=== PATIENT | female | born 1965 | race Caucasian/White ===

== ENCOUNTER 2016-11-13 22:20 | Emergency (ER) | payer BC ==
[2016-11-13] MEDS ORDERED: Nitroglycerin 2% Oint 1 GM UD Packet ONE (22:35)
[2016-11-13] MEDS ORDERED: Aspirin 81 MG Tab.Chew ONE (22:35)
--- NOTE | 2016-11-13 22:37 | EDM.PDOC ---
ED HPI GENERAL MEDICAL PROBLEM - General Chief Complaint: Chest Pain Stated Complaint: CHEST PAIN Time Seen by Provider: 11/13/16 22:29 Source of Information: Reports: Patient History Limitations: Reports: No Limitations - History of Present Illness INITIAL COMMENTS - FREE TEXT/NARRATIVE: 50 YO WF presents to ER complaining of chest pain on and off x 2 weeks. Pt reports today her pain became worse prompting her to come to ER for evaluation. Pt with associated shortness of breath, but denies nausea/vomiting, diaphoresis or dizziness. Pt reports she had PTCA with stent x 1 (01/2016). Duration: Week(s): (2) Location: Reports: Chest Quality: Reports: Pressure Severity: Mild Improves with: Reports: None Worsens with: Reports: None Associated Symptoms: Reports: Chest Pain, Shortness of Breath. 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 - Related Data Allergies Allergy/AdvReac Type Severity Reaction Status Date / Time Sulfa (Sulfonamide Allergy Rash Verified 11/13/16 22:31 Antibiotics) Home Meds: Home Meds Aspirin [[place] Aspirin] 81 mg PO DAILY 02/13/16 [History] Clopidogrel [Plavix] 75 mg PO DAILY 02/13/16 [History] Isosorbide Mononitrate [Imdur] 30 mg PO DAILY 02/13/16 [History] Nitroglycerin [IJP: Nitroglycerin] 0.4 mg SL ASDIRECTED PRN 02/13/16 [History] Ubidecarenone [Co Q-10] 30 mg PO DAILY 02/13/16 [History] amLODIPine [Norvasc] 5 mg PO DAILY 02/13/16 [History] atorvaSTATin Calcium [Atorvastatin Calcium] 80 mg PO DAILY 02/13/16 [History] Past Medical History HEENT History: Reports: Impaired Vision Other HEENT History: double vision for 3 days one time Cardiovascular History: Reports: High Cholesterol Respiratory History: Reports: Other (See Below) Other Respiratory History: coksaki B virus few years ago Gastrointestinal History: Reports: Chronic Constipation, Hemorrhoids 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 Immunologic History: Reports: None Dermatologic History: Reports: Other (See Below) Other Dermatologic History: hydradenitis superativa - Infectious Disease History Infectious Disease History: Reports: Mumps - Past Surgical History Cardiovascular Surgical History: Reports: Coronary Artery Bypass, Coronary Artery Stent Musculoskeletal Surgical History: Reports: Other (See Below) Social & Family History - Family History Cardiac: Reports: [place], Pacemaker Other Cardiac Family History: cardiac arrest, family history of [place] in the 50's Neurological: Reports: CVA - Tobacco Use Smoking Status *Q: Current Every Day Smoker Years of Tobacco use: 20 Packs/Tins Daily: 1 Used Tobacco, but Quit: No Second Hand Smoke Exposure: No - Caffeine Use Caffeine Use: Reports: Coffee Caffeine Use Comment: pot a day of coffee. - Alcohol Use Days Per Week of Alcohol Use: 0 - Recreational Drug Use Recreational Drug Use: No ED ROS GENERAL - Review of Systems Review Of Systems: See Below Constitutional: Reports: No Symptoms HEENT: Reports: No Symptoms Respiratory: Reports: Shortness of Breath Cardiovascular: Reports: Chest Pain Endocrine: Reports: No Symptoms GI/Abdominal: Reports: No Symptoms : Reports: No Symptoms Musculoskeletal: Reports: No Symptoms Skin: Reports: No Symptoms Neurological: Reports: No Symptoms Psychiatric: Reports: No Symptoms Hematologic/Lymphatic: Reports: No Symptoms Immunologic: Reports: No Symptoms ED EXAM, GENERAL - Physical Exam Exam: See Below Exam Limited By: No Limitations General Appearance: Alert, WD/WN, No Apparent Distress Nose: Normal Inspection, Normal Mucosa, No Blood Throat/Mouth: Normal Inspection, Normal Lips, Normal Teeth, Normal Gums, Normal Oropharynx, Normal Voice, No Airway Compromise Head: Atraumatic, Normocephalic Neck: Normal Inspection Respiratory/Chest: No Respiratory Distress, Lungs Clear, Normal Breath Sounds, No Accessory Muscle Use, Chest Non-Tender Cardiovascular: Normal Peripheral Pulses, Regular Rate, Rhythm, No Edema, No Gallop, No JVD, No Murmur, No Rub GI/Abdominal: Normal Bowel Sounds, Soft, Non-Tender, No Organomegaly, No Distention, No Abnormal Bruit, No Mass Back Exam: Normal Inspection, Full Range of Motion, NT Extremities: Normal Inspection, Normal Range of Motion, Non-Tender, Normal Capillary Refill, No Pedal Edema Neurological: Alert, Oriented, CN II-XII Intact, Normal Cognition, Normal Gait, Normal Reflexes, No Motor/Sensory Deficits Psychiatric: Normal Affect, Normal Mood Skin Exam: Warm, Dry, Intact, Normal Color, No Rash Lymphatic: No Adenopathy EKG INTERPRETATION EKG Date: 11/13/16 Time: 22:25 Rhythm: NSR Rate (Beats/Min): 94 [place]: Normal P-Wave: Present QRS: Normal ST-T: Normal QT: Normal Comparison: NA - No Prior EKG Course - Orders/Labs/Meds Orders: Active Orders 24 hr Category Date Time Status EKG Documentation Completion [RC] ASDIRECTED Care 11/13/16 22:28 Active Chest 1V Frontal [CR] Stat Exams 11/13/16 22:27 Taken EKG 12 Lead [EK] Routine Ther 11/13/16 22:27 Ordered Labs: Laboratory Tests 11/13/16 11/13/16 11/13/16 Range/Units 22:45 22:45 22:45 WBC 11.9 H (5.0-10.0) 10^3/uL RBC 4.98 (3.80-5.50) 10^6/uL Hgb 14.5 (12.0-16.0) g/dL Hct 43.9 (37.0-47.0) % MCV 88.3 (82.0-92.0) fL MCH 29.1 (27.0-31.0) pg MCHC 33.0 (32.0-36.0) g/dL RDW 13.3 (11.5-14.5) % Plt Count 282 (150-300) 10^3/uL MPV 8.3 (7.4-10.4) fL Neut % (Auto) 60.9 (50.0-70.0) % Lymph % (Auto) 29.2 (20.0-40.0) % [place] % (Auto) 3.0 (2.0-8.0) % Eos % (Auto) 6.9 H (1.0-3.0) % Baso % (Auto) 0.0 (0.0-1.0) % Neut # (Auto) 7.2 H (2.5-7.0) 10^3/uL Lymph # (Auto) 3.5 (1.0-4.0) 10^3/uL [place] # (Auto) 0.4 (0.1-0.8) 10^3/uL Eos # (Auto) 0.8 H (0.1-0.3) 10^3/uL Baso # (Auto) 0.0 (0.0-0.1) 10^3/uL PT 9.9 (8.9-11.4) SEC INR 1.0 (0.9-1.1) APTT 27.4 (20.8-31.2) SEC Sodium 139 (136-145) mmol/L Potassium 3.8 (3.3-5.3) mmol/L Chloride 102 (98-115) mmol/L Carbon Dioxide 29.0 (21.0-32.0) mmol/L BUN 17 (6-25) mg/dL Creatinine 0.76 (0.51-1.17) mg/dL Est Cr Clr Drug Dosing TNP Estimated GFR (MDRD) > 60 mL/min Glucose 119 H (70-110) mg/dL Calcium 9.2 (8.7-10.3) mg/dL Creatine Kinase 76 (26-276) U/L CK-MB (CK-2) 0.60 (0.00-4.30) ng/mL Troponin I 0.15 H* (0.00-0.070) ng/mL Meds: Medications Discontinued Medications Generic Name Dose Route Start Last Admin Trade Name Jasenq PRN Reason Stop Dose Admin Aspirin Confirm 11/13/16 22:35 11/13/16 22:40 Aspirin Administered 11/13/16 22:36 243 mg Dose Administration 243 mg .ROUTE .STK-MED ONE Nitroglycerin Confirm 11/13/16 22:35 11/13/16 22:40 Nitro-Bid 2% Administered 11/13/16 22:36 1 gm Dose Administration 1 gm .ROUTE .STK-MED ONE - Radiology Interpretation Free Text/Narrative:: CXR- NAD Departure - Departure Time of Disposition: 23:32 Disposition: DC/Tfer to Acute Hospital 02 Reason for Transfer *Q: Other Condition: Serious Clinical Impression: Acute coronary syndrome Forms: Interfacility Transfer EMTALA - My Orders Last 24 Hours: My Active Orders 11/13/16 22:27 Chest 1V Frontal [CR] Stat EKG 12 Lead [EK] Routine 11/13/16 22:28 EKG Documentation Completion [RC] ASDIRECTED - Assessment/Plan Last 24 Hours: My Active Orders 11/13/16 22:27 Chest 1V Frontal [CR] Stat EKG 12 Lead [EK] Routine 11/13/16 22:28 EKG Documentation Completion [RC] ASDIRECTED Assessment:: 1. NonSTEMI- trop I 0.15 2. chest pain Plan: 1. transfer to [facility] for cardiology evaluation- discussed case with ER doctor- Dr Boudreaux
[2016-11-13 23:24] LABS: CHLORIDE,CL 102 mmol/L (98-115); SODIUM,NA 139 mmol/L (136-145)
[2016-11-14 02:19] VITALS: BP 138/72
[2016-11-14] MEDS ORDERED: Aspirin 81 MG Tab.Chew CHEW ONE (22:40)
[2016-11-14] MEDS ORDERED: Nitroglycerin 2% Oint 1 GM UD Packet TOP ONE (22:45)
== END 2016-11-14 00:05 ==
LOC: KA.ED 22:20
DX: I21.4 Non-ST elevation (NSTEMI) myocardial infarction (principal); I24.9 Acute ischemic heart disease, unspecified; E78.00 Pure hypercholesterolemia, unspecified; F17.210 Nicotine dependence, cigarettes, uncomplicated; Z95.1 Presence of aortocoronary bypass graft; Z95.5 Presence of coronary angioplasty implant and graft; Z88.2 Allergy status to sulfonamides; Z79.82 Long term (current) use of aspirin; Z79.02 Long term (current) use of antithrombotics/antiplatelets; Z79.899 Other long term (current) drug therapy
CPT/HCPCS: 71010; 80048; 82550; 82553; 84484; 85025; 85610; 85730; 93005; 99285; A9270

== ENCOUNTER 2016-11-18 19:00 | Emergency (ER) | payer BC ==
[2016-11-18 19:42] VITALS: BP 133/78
--- NOTE | 2016-11-18 19:47 | EDM.PDOC ---
ED HPI GENERAL MEDICAL PROBLEM - General Chief Complaint: General Stated Complaint: RIGHT ARM PAIN Time Seen by Provider: 11/18/16 19:32 Source of Information: Reports: Patient History Limitations: Reports: No Limitations - History of Present Illness INITIAL COMMENTS - FREE TEXT/NARRATIVE: Patient presents with right arm pain along the radial wrist to her shoulder. This is the path that the park aide used to place 3 cardiac stents 3 days ago. She has been complying with the post-procedure instructions about heavy lifting. She has been using the arm to operate a computer mouse quite a bit. She says she did this after the same procedure in the same arm 10 months ago but that time had no arm pain like today. She denies any chest pain or heaviness, dyspnea. - Related Data Allergies Allergy/AdvReac Type Severity Reaction Status Date / Time Sulfa (Sulfonamide Allergy Rash Verified 11/13/16 22:31 Antibiotics) Home Meds: Home Meds Aspirin [[place] Aspirin] 81 mg PO DAILY 02/13/16 [History] Clopidogrel [Plavix] 75 mg PO DAILY 02/13/16 [History] Isosorbide Mononitrate [Imdur] 30 mg PO DAILY 02/13/16 [History] Nitroglycerin [IJP: Nitroglycerin] 0.4 mg SL ASDIRECTED PRN 02/13/16 [History] Ubidecarenone [Co Q-10] 30 mg PO DAILY 02/13/16 [History] amLODIPine [Norvasc] 5 mg PO DAILY 02/13/16 [History] atorvaSTATin Calcium [Atorvastatin Calcium] 80 mg PO DAILY 02/13/16 [History] Past Medical History HEENT History: Reports: Impaired Vision Other HEENT History: double vision for 3 days one time Cardiovascular History: Reports: High Cholesterol Respiratory History: Reports: Other (See Below) Other Respiratory History: coksaki B virus few years ago Gastrointestinal History: Reports: Chronic Constipation, Hemorrhoids Genitourinary History: Reports: None 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 Immunologic History: Reports: None Dermatologic History: Reports: Other (See Below) Other Dermatologic History: hydradenitis superativa - Infectious Disease History Infectious Disease History: Reports: Mumps - Past Surgical History Cardiovascular Surgical History: Reports: Coronary Artery Bypass, Coronary Artery Stent Musculoskeletal Surgical History: Reports: Other (See Below) Social & Family History - Family History Cardiac: Reports: [place], Pacemaker Other Cardiac Family History: cardiac arrest, family history of [place] in the 50's Neurological: Reports: CVA - Tobacco Use Smoking Status *Q: Current Every Day Smoker Years of Tobacco use: 20 Packs/Tins Daily: 1 Used Tobacco, but Quit: No Second Hand Smoke Exposure: No - Caffeine Use Caffeine Use: Reports: Coffee Caffeine Use Comment: pot a day of coffee. - Alcohol Use Days Per Week of Alcohol Use: 0 - Recreational Drug Use Recreational Drug Use: No ED ROS GENERAL - Review of Systems Review Of Systems: ROS reveals no pertinent complaints other than HPI. ED EXAM, GENERAL - Physical Exam Exam: See Below Exam Limited By: No Limitations General Appearance: Alert, WD/WN, No Apparent Distress Eye Exam: Bilateral Eye: EOMI, Normal Inspection, PERRL Ears: Normal External Exam, Hearing Grossly Normal Nose: Normal Inspection Throat/Mouth: Normal Inspection, Normal Lips, Normal Voice, No Airway Compromise Head: Atraumatic, Normocephalic Neck: Full Range of Motion Respiratory/Chest: No Respiratory Distress, Lungs Clear, Normal Breath Sounds Cardiovascular: Regular Rate, Rhythm, No Murmur Peripheral Pulses: 2+: Radial (L), Radial (R) GI/Abdominal: No Distention Extremities: Normal Inspection, Normal Range of Motion, Non-Tender, Other ( Right arm has no evidence of swelling or redness and is mostly nontender to palpation; some tenderness to palpation of tricep but it is supple. No bleeding or hematoma. There is a small scab and local ecchymosis at the distal catheter site of volar radial wrist.). No: Increased Warmth, Redness Neurological: Alert, Oriented, Normal Cognition, No Motor/Sensory Deficits Psychiatric: Normal Affect, Normal Mood Skin Exam: Warm, Dry, Intact, Normal Color, No Rash Course - Vital Signs Last Recorded V/S: Last Vital Signs Temp 98.0 F 11/18/16 19:15 Pulse 93 11/18/16 19:15 Resp 18 11/18/16 19:15 BP 133/78 11/18/16 19:15 Pulse Ox 97 08/17/17 19:15 - Re-Assessments/Exams Free Text/Narrative Re-Assessment/Exam: 11/18/16 19:[address] Jensen (her park aide) and he feels that without arm swelling or tenderness and no chest symptoms, she is okay to discharge on Tylenol. Discussed this with patient and advised recheck with ultrasound if worsening pain or swelling develops. Pt discharged in stable condition. Departure - Departure Time of Disposition: 19:55 Disposition: Home, Self-Care 01 Condition: Good Clinical Impression: Right arm pain, Status post cardiac catheterization - Discharge Information Forms: ED Department Discharge Additional Instructions: 1. Use Tylenol as needed for the arm pain. 2. Continue the warm and cold packs. 3. If worsening or swelling develops you should go to be evaluated by ultrasound. 4. Follow up with cardiology if this persists. 5. Return to ER as needed.
== END 2016-11-18 20:00 | disposition home or self-care (01) ==
LOC: KA.ED 19:00
DX: L76.22 Postprocedural hemorrhage of skin and subcutaneous tissue following other procedure (principal); H54.7 Unspecified visual loss; E78.00 Pure hypercholesterolemia, unspecified; F17.210 Nicotine dependence, cigarettes, uncomplicated; Z98.890 Other specified postprocedural states; Z88.2 Allergy status to sulfonamides; Z79.82 Long term (current) use of aspirin; Z79.899 Other long term (current) drug therapy; Y84.0 Cardiac catheterization as the cause of abnormal reaction of the patient, or of later complication, without mention of misadventure at the time of the procedure
CPT/HCPCS: 99283

== ENCOUNTER 2018-06-11 20:47 | Emergency (ER) | payer BC ==
[2018-06-11] MEDS ORDERED: Sodium Chloride 0.9% 10 ML Syringe FLUSH PRN (21:16)
[2018-06-11] MEDS ORDERED: Famotidine 20 MG/2 ML SDV IVPUSH ONE (21:17)
--- NOTE | 2018-06-11 21:35 | EDM.PDOC ---
ED HPI GENERAL MEDICAL PROBLEM - General Chief Complaint: Cardiovascular Problem Stated Complaint: CHEST PRESSURE Time Seen by Provider: 06/11/18 21:03 Source of Information: Reports: Patient History Limitations: Reports: No Limitations - History of Present Illness INITIAL COMMENTS - FREE TEXT/NARRATIVE: Patient is a 52-year-old female who presents to the emergency department this evening with a complaint of epigastric pain. Patient states last evening, just prior to bedtime, she developed some epigastric discomfort. Patient states that she was able to sleep. However, when she woke this morning, the pain returned. Epigastric pain seemed to progress to midsternal and has been constant all day. Described as pressure or bloating, epigastric and midsternal region. Patient became concerned because she does have a cardiac history and stent placement 2 years ago. Patient also states that she has not been compliant with taking her medications. Patient denies shortness of breath, fever, nausea, vomiting, diarrhea, headache, cough, congestion, history of GERD , or out of country travel. Onset: Gradual Onset Date: 06/10/18 Onset Time: 23:00 Duration: Day(s): Location: Reports: Chest, Abdomen Quality: Reports: Pressure Severity: Mild Improves with: Reports: None Worsens with: Reports: None Context: Denies: Trauma Associated Symptoms: Reports: Chest Pain. Denies: Cough, cough w sputum, Fever/ Chills, Headaches, Nausea/Vomiting, Shortness of Breath - Related Data Allergies Allergy/AdvReac Type Severity Reaction Status Date / Time Sulfa (Sulfonamide Allergy Rash Verified 06/11/18 22:43 Antibiotics) Past Medical History HEENT History: Reports: Impaired Vision Other HEENT History: double vision for 3 days one time Cardiovascular History: Reports: High Cholesterol Respiratory History: Reports: Other (See Below) Other Respiratory History: coksaki B virus few years ago Gastrointestinal History: Reports: Chronic Constipation, Hemorrhoids Genitourinary History: Reports: None 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 Immunologic History: Reports: None Dermatologic History: Reports: Other (See Below) Other Dermatologic History: hydradenitis superativa - Infectious Disease History Infectious Disease History: Reports: Mumps - Past Surgical History Cardiovascular Surgical History: Reports: Coronary Artery Bypass, Coronary Artery Stent Musculoskeletal Surgical History: Reports: Other (See Below) Social & Family History - Family History Cardiac: Reports: [place], Pacemaker Other Cardiac Family History: cardiac arrest, family history of [place] in the 50's Neurological: Reports: CVA - Caffeine Use Caffeine Use: Reports: Coffee Caffeine Use Comment: pot a day of coffee. ED ROS GENERAL - Review of Systems Review Of Systems: ROS reveals no pertinent complaints other than HPI. Constitutional: Reports: No Symptoms HEENT: Reports: No Symptoms Respiratory: Reports: No Symptoms Cardiovascular: Reports: Chest Pain Endocrine: Reports: No Symptoms GI/Abdominal: Reports: Abdominal Pain : Reports: No Symptoms Musculoskeletal: Reports: No Symptoms Skin: Reports: No Symptoms Neurological: Reports: No Symptoms Psychiatric: Reports: No Symptoms Hematologic/Lymphatic: Reports: No Symptoms Immunologic: Reports: No Symptoms ED EXAM, GENERAL - Physical Exam Exam: See Below Exam Limited By: No Limitations General Appearance: Alert, WD/WN, No Apparent Distress Nose: Normal Inspection, No Blood Throat/Mouth: Normal Inspection, Normal Oropharynx, No Airway Compromise Head: Atraumatic, Normocephalic Neck: Normal Inspection, Supple Respiratory/Chest: No Respiratory Distress, Lungs Clear, Normal Breath Sounds, No Accessory Muscle Use Cardiovascular: Normal Peripheral Pulses, Regular Rate, Rhythm, No Gallop, No Murmur, No Rub Peripheral Pulses: 2+: Brachial (L), Brachial (R), Radial (L), Radial (R) GI/Abdominal: Normal Bowel Sounds, Soft, No Organomegaly, No Distention, No Abnormal Bruit, No Mass, Tender (Epigastric). No: Distended, Guarding, Rigid, Rebound Back Exam: Normal Inspection. No: CVA Tenderness (L), CVA Tenderness (R) Extremities: Normal Inspection, No Pedal Edema Neurological: Alert, Oriented, Normal Cognition Psychiatric: Normal Affect, Normal Mood Skin Exam: Warm, Dry, Intact, Normal Color, No Rash EKG INTERPRETATION EKG Date: 06/11/18 Time: 21:05 Rhythm: NSR [place]: Normal P-Wave: Present QRS: Normal ST-T: Other (Nonspecific) Comparison: Change From Previous EKG Course - Orders/Labs/Meds Orders: Active Orders 24 hr Category Date Time Status EKG Documentation Completion [RC] ASDIRECTED Care 06/11/18 21:16 Ordered Peripheral IV Care [RC] . DIRECTED Care 06/11/18 21:16 Ordered Chest 2V [CR] Stat Exams 06/11/18 21:16 Ordered COMPREHENSIVE METABOLIC PN,CMP [CHEM] Stat Lab 06/11/18 21:16 Ordered LIPASE [CHEM] Stat Lab 06/11/18 21:16 Ordered TROPONIN I [CHEM] Stat Lab 06/11/18 21:16 Ordered Sodium Chloride 0.9% [Saline Flush] Med 06/11/18 21:16 Ordered 10 ml FLUSH Q8HR PRN Peripheral IV Insertion Adult [OM.PC] Routine Oth 06/11/18 21:16 Ordered EKG 12 Lead [EK] Routine Ther 06/11/18 21:16 Ordered Medication Orders Sodium Chloride (Saline Flush) 10 ml FLUSH Q8HR PRN PRN Reason: keep vein open Labs: Laboratory Tests 06/11/18 Range/Units 21:00 WBC 11.16 H (5.00-10.00) 10^3/uL RBC 5.10 (3.80-5.50) 10^6/uL Hgb 15.2 (12.0-16.0) g/dL Hct 44.3 (37.0-47.0) % MCV 86.9 (82.0-92.0) fL MCH 29.8 (27.0-31.0) pg MCHC 34.3 (32.0-36.0) g/dL RDW 13.4 (11.5-14.5) % Plt Count 284 (150-400) 10^3/uL MPV 10.0 (7.4-10.4) fL Immature Gran % (Auto) 0.3 (0.0-5.0) % Neut % (Auto) 56.8 (50.0-70.0) % Lymph % (Auto) 33.2 (20.0-40.0) % [place] % (Auto) 4.9 (2.0-8.0) % Eos % (Auto) 3.8 H (1.0-3.0) % Baso % (Auto) 1.0 (0.0-1.0) % Immature Gran # (Auto) 0.03 (0.00-0.50) 10^3/uL Neut # (Auto) 6.35 (2.50-7.00) 10^3/uL Lymph # (Auto) 3.70 (1.00-4.00) 10^3/uL [place] # (Auto) 0.55 (0.10-0.80) 10^3/uL Eos # (Auto) 0.42 H (0.10-0.30) 10^3/uL Baso # (Auto) 0.11 H (0.00-0.10) 10^3/uL Meds: Medications Generic Name Dose Route Start Last Admin Trade Name Freq PRN Reason Stop Dose Admin Sodium Chloride 10 ml 06/11/18 21:16 Saline Flush FLUSH Q8HR PRN keep vein open Discontinued Medications Generic Name Dose Route Start Last Admin Trade Name Freq PRN Reason Stop Dose Admin Famotidine 20 mg 06/11/18 21:17 Pepcid IVPUSH 06/11/18 21:18 ONETIME ONE - Radiology Interpretation Free Text/Narrative:: Chest x-ray shows no acute cardiopulmonary process - Re-Assessments/Exams Free Text/Narrative Re-Assessment/Exam: 06/11/18 22:42 Patient afebrile, vital signs stable, chest pain subsided, patient resting comfortably. Discussed case with Dr. Briggs, ER at [facility] in [place] recommended to discuss with cardiology and hospitalist for transfer. Discussed case with Dr. Srivastava, cardiology and Dr Hall, hospitalist and they accepted the transfer. Patient was given 180 Brilinta, 100 Lovenox, and 1 inch Nitropaste was applied. Departure - Departure Time of Disposition: 22:45 Disposition: DC/Tfer to Acute Hospital 02 Reason for Transfer *Q: Primary PCI Indicated Condition: Fair Clinical Impression: Acute myocardial infarction Qualifiers: Myocardial infarction type: non-ST elevation myocardial infarction Qualified Code(s): I21.4 - Non-ST elevation (NSTEMI) myocardial infarction Referrals: Cece Petersen MD [Primary Care Provider] - Forms: ED Department Discharge, Interfacility Transfer EMTALA - My Orders Last 24 Hours: My Active Orders 06/11/18 21:16 EKG Documentation Completion [RC] ASDIRECTED Peripheral IV Care [RC] . DIRECTED Chest 2V [CR] Stat COMPREHENSIVE METABOLIC PN,CMP [CHEM] Stat LIPASE [CHEM] Stat TROPONIN I [CHEM] Stat Sodium Chloride 0.9% [Saline Flush] 10 ml FLUSH Q8HR PRN Peripheral IV Insertion Adult [OM.PC] Routine EKG 12 Lead [EK] Routine - Assessment/Plan Last 24 Hours: My Active Orders 06/11/18 21:16 EKG Documentation Completion [RC] ASDIRECTED Peripheral IV Care [RC] . DIRECTED Chest 2V [CR] Stat COMPREHENSIVE METABOLIC PN,CMP [CHEM] Stat LIPASE [CHEM] Stat TROPONIN I [CHEM] Stat Sodium Chloride 0.9% [Saline Flush] 10 ml FLUSH Q8HR PRN Peripheral IV Insertion Adult [OM.PC] Routine EKG 12 Lead [EK] Routine Assessment:: Chest pain, non-STEMI [place] Plan: Transferred to [facility]
[2018-06-11 22:05] LABS: ANION GAP 32.7 mmol/L (5-15); CHLORIDE,CL 96 mmol/L (98-115); SODIUM,NA 149 mmol/L (136-145)
[2018-06-11] MEDS ORDERED: Aspirin 81 MG Tab.Chew ONE (22:16)
[2018-06-11] MEDS ORDERED: Aspirin 81 MG Tab.Chew PO ONE (22:18)
[2018-06-11] MEDS ORDERED: Ticagrelor 90 MG Tab PO ONE (22:20)
[2018-06-11] MEDS ORDERED: Enoxaparin 100 MG/1 ML Syringe SUBCUT ONE (22:29)
[2018-06-11] MEDS ORDERED: Nitroglycerin 2% Oint 1 GM UD Packet ONE (22:33)
[2018-06-11] MEDS ORDERED: Nitroglycerin 2% Oint 1 GM UD Packet TOP ONE (22:33)
[2018-06-12 01:53] VITALS: BP 148/65
--- NOTE | 2018-06-12 08:16 | CR ---
[id number] RAD/RAD Chest PA And Lateral EXAM: RAD Chest PA And Lateral CLINICAL DATA: CHEST PAIN COMPARISON: CORRELATION IS MADE WITH THE EXAM OF NOVEMBER 14, 2016. FINDINGS: The lungs are clear. The cardiomediastinal contour is normal. The regional bones and soft tissues are unremarkable. IMPRESSION: NO ACUTE PROCESS. Milan Frank MD 06/12/18 0813 Thank you for allowing us to participate in the care of your patient.
== END 2018-06-11 23:00 ==
LOC: KA.ED 20:47
DX: I21.4 Non-ST elevation (NSTEMI) myocardial infarction (principal); Z88.2 Allergy status to sulfonamides
CPT/HCPCS: 36415; 71046; 80053; 83690; 84484; 85025; 85379; 93005; 96372; 96374; 99285-25; A9270-GY; J1650; J3490

== ENCOUNTER 2019-01-09 13:55 | Emergency (ER) | payer BC ==
--- NOTE | 2019-01-09 14:19 | EDM.PDOC ---
ED HPI GENERAL MEDICAL PROBLEM - General Chief Complaint: Chest Pain Stated Complaint: CHEST PAIN Time Seen by Provider: 01/09/19 14:05 Source of Information: Reports: Patient History Limitations: Reports: No Limitations - History of Present Illness INITIAL COMMENTS - FREE TEXT/NARRATIVE: Patient's a 53-year-old female who presents to the emergency department this afternoon with complaint of chest pain. Patient states that pain began on Tuesday afternoon, has been intermittent all weekend and worsen this morning. Patient is taken multiple doses of sublingual nitroglycerin with some relief. Pain described as achy and midsternal. Patient was seen by Ju this morning and then EKG and troponin was ordered. No obvious EKG changes, however Troponin was found to be 0.29 and patient was advised to present to the ER. 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 Recovery was uneventful. Patient currently denies fever, shortness of breath, any trauma, the country travel, lower extremity edema, or history of DVT. Onset: Gradual Duration: Day(s): Location: Reports: Chest Quality: Reports: Ache Severity: Mild Improves with: Reports: None Worsens with: Reports: None Context: Denies: Trauma Associated Symptoms: Reports: No Other Symptoms, Weakness. Denies: Fever/Chills , Nausea/Vomiting, Shortness of Breath - Related Data Allergies Allergy/AdvReac Type Severity Reaction Status Date / Time chlorhexidine Allergy Rash Verified 01/09/19 14:09 Sulfa (Sulfonamide Allergy Rash Verified 01/09/19 14:09 Antibiotics) Home Meds: Home Meds Citalopram [Citalopram HBr] 20 mg PO DAILY 09/01/18 [History] Furosemide [Lasix] 20 mg PO BID 09/01/18 [History] Metoprolol Tartrate [Lopressor] 37.5 mg PO BID 09/01/18 [History] Nitroglycerin 0.4 mg SL ASDIRECTED PRN 09/01/18 [History] Potassium Chloride [Klor-Con 10] 10 meq PO DAILY 09/01/18 [History] atorvaSTATin [Lipitor] 40 mg PO DAILY 09/01/18 [History] Aspirin [Adult Low Dose Aspirin EC] 81 mg PO DAILY 01/09/19 [History] Bisacodyl [Dulcolax] 5 mg PO DAILY 01/09/19 [History] Famotidine [Pepcid] 20 mg PO Q12H 01/09/19 [History] Ibuprofen 600 mg PO ASDIRECTED PRN 01/09/19 [History] Past Medical History HEENT History: Reports: Impaired Vision Other HEENT History: double vision for 3 days one time Cardiovascular History: Reports: High Cholesterol Other Cardiovascular History: Pt is non compliant. She has not taking any prescribed medications for almost a full year. Any attempt to discuss why this can not continue and pt talks about son with crohn's and herother kids that need her. Respiratory History: Reports: Other (See Below) Other Respiratory History: coksaki B virus few years ago Gastrointestinal History: Reports: Chronic Constipation, Hemorrhoids Genitourinary History: Reports: None FLY MAKER History: Reports: Other FLY MAKER History: G-4 P-3 Neurological History: Reports: Other (See Below) Other Neuro History: States that she has had episodes of feeling like she is leaning to the right a few episodes. Immunologic History: Reports: None Dermatologic History: Reports: Other (See Below) Other Dermatologic History: hydradenitis superativa - Infectious Disease History Infectious Disease History: Reports: Mumps - Past Surgical History Cardiovascular Surgical History: Reports: Coronary Artery Bypass, Coronary Artery Stent Musculoskeletal Surgical History: Reports: Other (See Below) Social & Family History - Family History Cardiac: Reports: [place], Pacemaker Other Cardiac Family History: cardiac arrest, family history of [place] in the 50's Neurological: Reports: CVA - Caffeine Use Caffeine Use: Reports: Coffee Caffeine Use Comment: pot a day of coffee. ED ROS GENERAL - Review of Systems Review Of Systems: ROS reveals no pertinent complaints other than HPI. Constitutional: Reports: No Symptoms HEENT: Reports: No Symptoms Respiratory: Reports: No Symptoms Cardiovascular: Reports: Chest Pain Endocrine: Reports: No Symptoms GI/Abdominal: Reports: No Symptoms : Reports: No Symptoms Musculoskeletal: Reports: No Symptoms Skin: Reports: No Symptoms Neurological: Reports: No Symptoms Psychiatric: Reports: No Symptoms Hematologic/Lymphatic: Reports: No Symptoms Immunologic: Reports: No Symptoms ED EXAM, GENERAL - Physical Exam Exam: See Below Exam Limited By: No Limitations General Appearance: Alert, WD/WN, No Apparent Distress Nose: Normal Inspection, Normal Mucosa, No Blood Throat/Mouth: Normal Inspection, Normal Oropharynx, No Airway Compromise Head: Atraumatic, Normocephalic Neck: Normal Inspection, Supple Respiratory/Chest: No Respiratory Distress, Lungs Clear, Normal Breath Sounds, No Accessory Muscle Use Cardiovascular: Normal Peripheral Pulses, Regular Rate, Rhythm, No Murmur GI/Abdominal: Normal Bowel Sounds, Soft, Non-Tender, No Organomegaly, No Distention, No Abnormal Bruit, No Mass Back Exam: Normal Inspection Extremities: Normal Inspection, No Pedal Edema Neurological: Alert, Oriented, No Motor/Sensory Deficits Psychiatric: Normal Affect, Normal Mood Skin Exam: Warm, Dry, Intact, Normal Color, No Rash EKG INTERPRETATION EKG Date: 01/09/19 Time: 14:25 Rhythm: NSR Rate (Beats/Min): 93 [place]: Normal ST-T: Normal QT: Prolonged Comparison: Change From Previous EKG Course - Vital Signs Last Recorded V/S: Last Vital Signs Temp 98.1 F 01/09/19 14:05 Pulse 77 01/09/19 15:52 Resp 13 01/09/19 15:52 BP 93/51 L 01/09/19 15:52 Pulse Ox 97 01/09/19 15:52 - Orders/Labs/Meds Orders: Active Orders 24 hr Category Date Time Status EKG Documentation Completion [RC] ASDIRECTED Care 01/09/19 14:13 Active Heparin Sodium/0.45% NaCl [Heparin 25,000 Units in 1/2 Med 01/09/19 16:30 Ordered NS 250 ML] 25,000 units in 250 ml IV CONTINUOUS EKG 12 Lead [EK] Routine Ther 01/09/19 14:10 Ordered Medication Orders Heparin Sodium/Sodium Chloride (Heparin 25,000 Units In 1/2 Ns 250 Ml) 25,000 units in 250 mls @ 11.322 mls/hr IV CONTINUOUS DAVID; Protocol Stop: 01/09/19 23:59 Labs: Laboratory Tests 01/09/19 01/09/19 01/09/19 Range/Units 14:40 14:40 14:40 WBC 10.18 H (5.00-10.00) 10^3/uL RBC 5.06 (3.80-5.50) 10^6/uL Hgb 13.8 (12.0-16.0) g/dL Hct 42.0 (37.0-47.0) % MCV 83.0 D (82.0-92.0) fL MCH 27.3 (27.0-31.0) pg MCHC 32.9 (32.0-36.0) g/dL RDW 15.7 H (11.5-14.5) % Plt Count 287 (150-400) 10^3/uL MPV 10.7 H (7.4-10.4) fL Immature Gran % (Auto) 0.2 (0.0-5.0) % Neut % (Auto) 60.1 (50.0-70.0) % Lymph % (Auto) 29.4 (20.0-40.0) % [place] % (Auto) 4.8 (2.0-8.0) % Eos % (Auto) 4.6 H (1.0-3.0) % Baso % (Auto) 0.9 (0.0-1.0) % Immature Gran # (Auto) 0.02 (0.00-0.50) 10^3/uL Neut # (Auto) 6.12 (2.50-7.00) 10^3/uL Lymph # (Auto) 2.99 (1.00-4.00) 10^3/uL [place] # (Auto) 0.49 (0.10-0.80) 10^3/uL Eos # (Auto) 0.47 H (0.10-0.30) 10^3/uL Baso # (Auto) 0.09 (0.00-0.10) 10^3/uL PT 10.4 (8.9-11.4) SEC INR 1.0 (0.9-1.1) APTT 26.5 (23.1-31.9) SEC Sodium 141 (136-145) mmol/L Potassium 3.9 (3.3-5.3) mmol/L Chloride 104 (98-115) mmol/L Carbon Dioxide 27.9 (21.0-32.0) mmol/L Anion Gap 13.0 (5-15) mmol/L BUN 13 (6-25) mg/dL Creatinine 0.73 (0.51-1.17) mg/dL Est Cr Clr Drug Dosing 69.68 mL/min Estimated GFR (MDRD) > 60 mL/min Glucose 168 H (75 - 99) mg/dL Calcium 9.2 (8.7-10.3) mg/dL Total Bilirubin 0.4 (0.2-1.0) mg/dL AST 19 (15-37) U/L ALT 23 (12-78) U/L Alkaline Phosphatase 121 H (46-116) IU/L Troponin I 0.24 H* (0.00-0.070) ng/mL Total Protein 6.9 (6.4-8.2) g/dL Albumin 3.62 (3.00-4.80) g/dL Lipase 136 (73-393) U/L Meds: Medications Generic Name Dose Route Start Last Admin Trade Name Freq PRN Reason Stop Dose Admin Heparin Sodium/Sodium Chloride 25,000 units in 250 mls @ 11.322 mls/hr 16:30 Heparin 25,000 Units In 1/2 Ns 250 Ml IV 01/09/19 23:59 CONTINUOUS DAVID Protocol 12 UNITS/KG/HR Discontinued Medications Generic Name Dose Route Start Last Admin Trade Name Freq PRN Reason Stop Dose Admin Heparin Sodium (Porcine) 4,000 units 01/09/19 16:14 Heparin Sodium IVPUSH 01/09/19 16:15 ONETIME ONE - Radiology Interpretation Free Text/Narrative:: Chest x-ray shows no acute cardiopulmonary process. Sternal wires in place - Re-Assessments/Exams Free Text/Narrative Re-Assessment/Exam: 01/09/19 16:28 afebrile, vital signs stable, chest pain, resolved. 4000 unit heparin bolus and heparin drip initiated. Discussed case with , cardiology at [facility] and , hospitalist at [facility]. Patient be transferred via ground ALS ambulance. Departure - Departure Time of Disposition: 16:33 Disposition: DC/Tfer to Acute Hospital 02 Reason for Transfer *Q: Primary PCI Indicated Condition: Fair Clinical Impression: Elevated troponin Chest pain Qualifiers: Chest pain type: unspecified Qualified Code(s): R07.9 - Chest pain, unspecified Referrals: PCP,Unknown [Ordering Only Provider] - Forms: ED Department Discharge, Interfacility Transfer EMTALA - My Orders Last 24 Hours: My Active Orders 01/09/19 14:10 EKG 12 Lead [EK] Routine 01/09/19 14:13 EKG Documentation Completion [RC] ASDIRECTED 01/09/19 16:30 Heparin Sodium/0.45% NaCl [Heparin 25,000 Units in 1/2 NS 250 ML] 25,000 units in 250 ml IV CONTINUOUS - Assessment/Plan Last 24 Hours: My Active Orders 01/09/19 14:10 EKG 12 Lead [EK] Routine 01/09/19 14:13 EKG Documentation Completion [RC] ASDIRECTED 01/09/19 16:30 Heparin Sodium/0.45% NaCl [Heparin 25,000 Units in 1/2 NS 250 ML] 25,000 units in 250 ml IV CONTINUOUS Assessment:: Chest pain, troponin elevation Plan: Transfer to [place]
--- NOTE | 2019-01-09 15:06 | CR ---
[id number] RAD/RAD Chest PA or AP 1V EXAM: FRONTAL CHEST INDICATION: Chest pain. COMPARISON: July 08, 2017. DISCUSSION: Interval resolution of pulmonary edema and removal of surgical drains. Prior sternotomy. Normal heart size. No acute infiltrates. IMPRESSION: 1. No acute findings. Chintan Hussein MD 01/09/19 [id number] Thank you for allowing us to participate in the care of your patient.
[2019-01-09 15:17] LABS: CHLORIDE,CL 104 mmol/L (98-115); SODIUM,NA 141 mmol/L (136-145)
[2019-01-09] MEDS: Heparin Sodium/0.45% NaCl 25,000 UNITS/250 ML BAG IV SCH (16:37)
[2019-01-09] MEDS: Heparin Sodium 5,000 Units/ML Vial IVPUSH ONE (16:37)
[2019-01-09 16:42] VITALS: BP 94/52; PULSE 82
== END 2019-01-09 17:00 ==
LOC: KA.ED 13:55
DX: R07.9 Chest pain, unspecified (principal); R79.89 Other specified abnormal findings of blood chemistry; E78.00 Pure hypercholesterolemia, unspecified; Z88.2 Allergy status to sulfonamides; Z88.1 Allergy status to other antibiotic agents
CPT/HCPCS: 36415; 71045; 80053; 83690; 84484; 85025; 85610; 85730; 93005; 96365; 96376; 99285; J1644

== ENCOUNTER 2019-02-17 16:58 | Emergency (ER) | payer BC ==
[2019-02-17 17:09] VITALS: BP 140/72; PULSE 102
[2019-02-17] MEDS ORDERED: Phenazopyridine 100 MG Tab PO ONE (17:20)
--- NOTE | 2019-02-17 17:35 | EDM.PDOC ---
ED HPI GENERAL MEDICAL PROBLEM - General Chief Complaint: Genitourinary Problem Stated Complaint: UTI Time Seen by Provider: 02/17/19 17:20 Source of Information: Reports: Patient History Limitations: Reports: No Limitations - History of Present Illness INITIAL COMMENTS - FREE TEXT/NARRATIVE: 53 YO WF presents to ER with complaints of dysuria with urinary frequency, urgency and hematuria x 1 day. Pt denies fever/chills, no nausea/vomiting, no back pain or abdominal pain. Pt reports it's been years since she's had a UTI but these symptoms seem similar. Onset: Today Location: Reports: Abdomen Quality: Reports: Pressure Severity: Mild Improves with: Reports: None Worsens with: Reports: None Associated Symptoms: Denies: Confusion, Fever/Chills, Loss of Appetite, Malaise , Nausea/Vomiting, Rash, Weakness - Related Data Allergies Allergy/AdvReac Type Severity Reaction Status Date / Time chlorhexidine Allergy Rash Verified 02/17/19 17:09 Sulfa (Sulfonamide Allergy Rash Verified 02/17/19 17:09 Antibiotics) Home Meds: Home Meds Furosemide [Lasix] 40 mg PO DAILY 09/01/18 [History] Metoprolol Tartrate [Lopressor] 50 mg PO DAILY 09/01/18 [History] Nitroglycerin 0.4 mg SL ASDIRECTED PRN 09/01/18 [History] Potassium Chloride [Klor-Con 10] 10 meq PO DAILY 09/01/18 [History] atorvaSTATin [Lipitor] 40 mg PO DAILY 09/01/18 [History] Aspirin [Adult Low Dose Aspirin EC] 81 mg PO DAILY 01/09/19 [History] Famotidine [Pepcid] 20 mg PO Q12H 01/09/19 [History] Ibuprofen 600 mg PO ASDIRECTED PRN 01/09/19 [History] Cephalexin [Keflex] 500 mg PO TID #15 capsule 02/17/19 [Rx] Clopidogrel [Plavix] 75 mg PO DAILY 02/17/19 [History] Losartan [Cozaar] 25 mg PO DAILY 02/17/19 [History] Past Medical History HEENT History: Reports: Impaired Vision Other HEENT History: double vision for 3 days one time Cardiovascular History: Reports: High Cholesterol Other Cardiovascular History: Pt is non compliant. She has not taking any prescribed medications for almost a full year. Any attempt to discuss why this can not continue and pt talks about son with crohn's and her other kids that need her. Respiratory History: Reports: Other (See Below) Other Respiratory History: coksaki B virus few years ago Gastrointestinal History: Reports: Chronic Constipation, Hemorrhoids Genitourinary History: Reports: None FAMILY DEVELOPMENT SPECIALIST History: Reports: Other FAMILY DEVELOPMENT SPECIALIST History: G-4 P-3 Neurological History: Reports: Other (See Below) Other Neuro History: States that she has had episodes of feeling like she is leaning to the right a few episodes. Psychiatric History: Reports: Depression Immunologic History: Reports: None Dermatologic History: Reports: Other (See Below) Other Dermatologic History: hydradenitis superativa - Infectious Disease History Infectious Disease History: Reports: Mumps - Past Surgical History Cardiovascular Surgical History: Reports: Coronary Artery Bypass, Coronary Artery Stent Musculoskeletal Surgical History: Reports: Other (See Below) Social & Family History - Family History Cardiac: Reports: [place], Pacemaker Other Cardiac Family History: cardiac arrest, family history of [place] in the 50's Neurological: Reports: CVA - Tobacco Use Smoking Status *Q: Current Every Day Smoker Years of Tobacco use: 25 Packs/Tins Daily: 0.5 - Caffeine Use Caffeine Use: Reports: Coffee Caffeine Use Comment: pot a day of coffee. - Recreational Drug Use Recreational Drug Use: No ED ROS GENERAL - Review of Systems Review Of Systems: See Below Constitutional: Reports: No Symptoms HEENT: Reports: No Symptoms Respiratory: Reports: No Symptoms Cardiovascular: Reports: No Symptoms Endocrine: Reports: No Symptoms GI/Abdominal: Reports: No Symptoms : Reports: Dysuria, Frequency, Hematuria, Urgency. Denies: Discharge, Irregular Menses Musculoskeletal: Reports: No Symptoms Skin: Reports: No Symptoms Neurological: Reports: No Symptoms Psychiatric: Reports: No Symptoms Hematologic/Lymphatic: Reports: No Symptoms Immunologic: Reports: No Symptoms ED EXAM, RENAL/ - Physical Exam Exam: See Below Exam Limited By: No Limitations General Appearance: Alert, WD/WN, No Apparent Distress Head: Atraumatic, Normocephalic Neck: Normal Inspection, Supple, Non-Tender, Full Range of Motion Respiratory/Chest: No Respiratory Distress, Lungs Clear, Normal Breath Sounds, No Accessory Muscle Use, Chest Non-Tender Cardiovascular: Normal Peripheral Pulses, Regular Rate, Rhythm, No Edema, No Gallop, No JVD, No Murmur, No Rub GI/Abdominal: Normal Bowel Sounds, Soft, Non-Tender, No Organomegaly, No Distention, No Abnormal Bruit, No Mass Back Exam: Normal Inspection, Full Range of Motion, NT Extremities: Normal Inspection, Normal Range of Motion, Non-Tender, Normal Capillary Refill, No Pedal Edema Neurological: Alert, Oriented, CN II-XII Intact, Normal Cognition, Normal Gait, Normal Reflexes, No Motor/Sensory Deficits Psychiatric: Normal Affect, Normal Mood Skin Exam: Warm, Dry, Intact, Normal Color, No Rash Lymphatic: No Adenopathy Course - Vital Signs Last Recorded V/S: Last Vital Signs Temp 36.1 C 02/17/19 17:04 Pulse 102 H 02/17/19 17:04 Resp 20 02/17/19 17:04 BP 140/72 02/17/19 17:04 Pulse Ox 96 02/17/19 17:04 - Orders/Labs/Meds Orders: Active Orders 24 hr Category Date Time Status UA W/MICROSCOPIC [URIN] Stat Lab 02/17/19 17:08 Results Phenazopyridine [Pyridium] Med 02/17/19 17:44 Ordered 500 mg PO TID PRN Medication Orders Phenazopyridine HCl (Pyridium) 500 mg PO TID PRN PRN Reason: Dysuria Labs: Laboratory Tests 02/17/19 Range/Units 17:08 Specimen Type . Urine Color [place] (YELLOW) Urine Appearance Cloudy H (CLEAR) Urine pH 6.0 (5.0-9.0) Ur Specific [place] <= 1.005 (1.005-1.030) Urine Protein 100 H (NEGATIVE) mg/dL Urine Glucose (UA) Negative (NEGATIVE) mg/dL Urine Ketones Negative (NEGATIVE) mg/dL Urine Occult Blood Large H (NEGATIVE) Urine Nitrite Negative (NEGATIVE) Urine Bilirubin Negative (NEGATIVE) Urine Urobilinogen 0.2 (0.2-1.0) E.U./dL Ur Leukocyte Esterase Moderate H (NEGATIVE) Meds: Medications Generic Name Dose Route Start Last Admin Trade Name Freq PRN Reason Stop Dose Admin Phenazopyridine HCl 500 mg 02/17/19 17:44 Pyridium PO TID PRN Dysuria Discontinued Medications Generic Name Dose Route Start Last Admin Trade Name Freq PRN Reason Stop Dose Admin Cephalexin 2,500 mg 02/17/19 17:44 Keflex PO 02/17/19 17:45 ONETIME ONE Phenazopyridine HCl 200 mg 02/17/19 17:20 02/17/19 17:23 Pyridium PO 02/17/19 17:21 200 mg ONETIME ONE Administration Departure - Departure Time of Disposition: 17:47 Disposition: Home, Self-Care 01 Condition: Good Clinical Impression: UTI, Urinary tract infectious disease - Discharge Information Prescriptions: Cephalexin [Keflex] 500 mg PO TID #15 capsule Instructions: Urinary Tract Infection, Adult, [id number] Referrals: Cece Petersen MD [Primary Care Provider] - Forms: ED Department Discharge Additional Instructions: 1. discharge home 2. keflex 500mg Q8 x 7days 3. pyridium 200mg TID x 2 days PRN 4. follow up with PCP for further evaluation and treatment 5. return to ER for worsening symptoms - My Orders Last 24 Hours: My Active Orders 02/17/19 17:08 UA W/MICROSCOPIC [URIN] Stat 02/17/19 17:44 Phenazopyridine [Pyridium] 500 mg PO TID PRN - Assessment/Plan Last 24 Hours: My Active Orders 02/17/19 17:08 UA W/MICROSCOPIC [URIN] Stat 02/17/19 17:44 Phenazopyridine [Pyridium] 500 mg PO TID PRN Assessment:: 1. urinary tract infection Plan: 1. discharge home 2. keflex 500mg Q8 x 7days 3. pyridium 200mg TID x 2 days PRN 4. follow up with PCP for further evaluation and treatment 5. return to ER for worsening symptoms
[2019-02-17] MEDS ORDERED: Phenazopyridine 100 MG Tab PO PRN (17:44)
[2019-02-17] MEDS ORDERED: Cephalexin 250 MG Cap PO ONE (17:44)
== END 2019-02-17 18:00 | disposition home or self-care (01) ==
LOC: KA.ED 16:58
DX: N39.0 Urinary tract infection, site not specified (principal); F17.210 Nicotine dependence, cigarettes, uncomplicated; E78.00 Pure hypercholesterolemia, unspecified; F32.9 Major depressive disorder, single episode, unspecified; Z79.82 Long term (current) use of aspirin; Z79.899 Other long term (current) drug therapy; Z79.02 Long term (current) use of antithrombotics/antiplatelets; Z88.2 Allergy status to sulfonamides; Z88.8 Allergy status to other drugs, medicaments and biological substances
CPT/HCPCS: 81001; 99283; A9270

== ENCOUNTER 2019-07-20 14:52 | Emergency (ER) | payer BC ==
[2019-07-20 15:04] VITALS: BP 164/76; PULSE 86
--- NOTE | 2019-07-20 15:49 | EDM.PDOC ---
<NavyaDuran D - Last Filed: 07/20/19 15:39> ED HPI GENERAL MEDICAL PROBLEM - General Chief Complaint: General Stated Complaint: DIZZINESS,UNSTEADY Time Seen by Provider: 07/20/19 15:34 Source of Information: Reports: Patient History Limitations: Reports: No Limitations - History of Present Illness INITIAL COMMENTS - FREE TEXT/NARRATIVE: Patient presents with a feeling that she is going to fall. This started yesterday (about 26 hours ago). She says she constantly feels unstable like she is going to fall and has had to catch herself against a wall of other object a few times. She hasn't fallen. She denies any spinning sensation, asymmetric extremity weakness, vision change, ringing in ears, hearing loss. She says both legs feel weak. She has a very slight headache. In the past she has had a problem with double vision but that has been resolved for several months. She thinks it may be related to the extreme stress she has been under the past days/weeks. 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 It has been manageable until , but now her workload has increased drastically and she also has 3 children doing school from home. She can't keep up with the work but isn't allowed to work more than 8 hours a day. She is afraid she will lose her job. She feels very stressed and anxious but hasn't had the time to even see her doctor about it. She has never had this before she says. - Related Data Allergies Allergy/AdvReac Type Severity Reaction Status Date / Time chlorhexidine Allergy Rash Verified 07/20/19 15:14 Sulfa (Sulfonamide Allergy Rash Verified 07/20/19 15:14 Antibiotics) Home Meds: Home Meds Furosemide [Lasix] 40 mg PO DAILY 09/01/18 [History] Metoprolol Tartrate [Lopressor] 50 mg PO DAILY 09/01/18 [History] Nitroglycerin 0.4 mg SL ASDIRECTED PRN 09/01/18 [History] Potassium Chloride [Klor-Con 10] 10 meq PO DAILY 09/01/18 [History] atorvaSTATin [Lipitor] 40 mg PO DAILY 09/01/18 [History] Aspirin [Adult Low Dose Aspirin EC] 81 mg PO DAILY 01/09/19 [History] Ibuprofen 600 mg PO ASDIRECTED PRN 01/09/19 [History] Clopidogrel [Plavix] 75 mg PO DAILY 02/17/19 [History] Losartan [Cozaar] 25 mg PO DAILY 02/17/19 [History] Citalopram [Citalopram HBr] 20 mg PO DAILY 07/20/19 [History] Past Medical History HEENT History: Reports: Impaired Vision Other HEENT History: double vision for 3 days one time Cardiovascular History: Reports: Bypass, High Cholesterol, Stents Other Cardiovascular History: Pt is non compliant. She has not taking any prescribed medications for almost a full year. Any attempt to discuss why this can not continue and pt talks about son with crohn's and her other kids that need her. 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 Psychiatric History: Reports: Depression Immunologic History: Reports: None Dermatologic History: Reports: Other (See Below) Other Dermatologic History: hydradenitis superativa - Infectious Disease History Infectious Disease History: Reports: Mumps - Past Surgical History Cardiovascular Surgical History: Reports: Coronary Artery Bypass, Coronary Artery Stent Other Cardiovascular Surgeries/Procedures: 4 BYPASS GI Surgical History: Reports: Cholecystectomy Female Surgical History: Reports: Hysterectomy, Oophorectomy Social & Family History - Family History Cardiac: Reports: [place], Pacemaker Other Cardiac Family History: cardiac arrest, family history of [place] in the 50's Neurological: Reports: CVA - Tobacco Use Smoking Status *Q: Current Every Day Smoker Years of Tobacco use: 30 Packs/Tins Daily: 1 - Caffeine Use Caffeine Use: Reports: Coffee, Soda Other Caffeine Use: diet coke 1 per day Caffeine Use Comment: pot a day of coffee. - Recreational Drug Use Recreational Drug Use: Yes Recreational Drug Type: Reports: Marijuana/Hashish Other Recreational Drug Type: 2 months ago ED ROS GENERAL - Review of Systems Review Of Systems: See Below Constitutional: Reports: Weakness. Denies: Fever, Diaphoresis HEENT: Denies: Ear Pain, Throat Pain, Vision Change Respiratory: Denies: Shortness of Breath, Cough Cardiovascular: Reports: Lightheadedness (kind of dizzy and off balance). Denies: Chest Pain, Syncope GI/Abdominal: Denies: Abdominal Pain, Diarrhea, Vomiting : Denies: Dysuria, Flank Pain, Frequency Musculoskeletal: Denies: Neck Pain, Shoulder Pain, Arm Pain, Back Pain, Hand Pain, Leg Pain, Foot Pain Skin: Denies: Cyanosis, Jaundice, Mottled, Pallor, Diaphoresis Neurological: Reports: Dizziness, Difficulty Walking (see HPI). Denies: Confusion, Numbness, Seizure, Syncope, Tingling, Trouble Speaking, Change in Speech Psychiatric: Reports: Anxiety. Denies: Agitation, Confusion ED EXAM, GENERAL - Physical Exam Exam: See Below Exam Limited By: No Limitations General Appearance: Alert, WD/WN, No Apparent Distress Eye Exam: Bilateral Eye: EOMI, Normal Inspection, PERRL Ears: Normal External Exam, Normal Canal, Hearing Grossly Normal, Normal TMs Nose: Normal Inspection, No Blood Throat/Mouth: Normal Inspection, Normal Lips, Normal Teeth, Normal Gums, Normal Oropharynx, Normal Voice, No Airway Compromise Head: Atraumatic, Normocephalic Neck: Normal Inspection, Full Range of Motion Respiratory/Chest: No Respiratory Distress, Lungs Clear, Normal Breath Sounds, No Accessory Muscle Use Cardiovascular: Regular Rate, Rhythm, No Edema, No Murmur GI/Abdominal: Normal Bowel Sounds, Soft, Non-Tender, No Organomegaly, No Distention Back Exam: Normal Inspection, Full Range of Motion. No: CVA Tenderness (L), CVA Tenderness (R) Extremities: Normal Inspection, Normal Range of Motion, Non-Tender, No Pedal Edema, Normal Capillary Refill, Other (5/5 strength throughout UE/LE) Neurological: Alert, Oriented, CN II-XII Intact, Normal Cognition, No Motor/ Sensory Deficits, Other (Romberg is negative but she feels unsteady and appears slightly shaky, although she passes test fine) Psychiatric: Anxious Skin Exam: Warm, Dry, Intact, Normal Color, No Rash Course - Vital Signs Last Recorded V/S: Last Vital Signs Temp 35.8 C L 07/20/19 14:59 Pulse 86 07/20/19 14:59 Resp 20 07/20/19 14:59 BP 164/76 H 07/20/19 14:59 Pulse Ox 96 07/20/19 14:59 - Orders/Labs/Meds Labs: Laboratory Tests 07/20/19 07/20/19 Range/Units 15:40 15:40 WBC 9.54 (5.00-10.00) 10^3/uL RBC 4.85 (3.80-5.50) 10^6/uL Hgb 13.4 (12.0-16.0) g/dL Hct 40.8 (37.0-47.0) % MCV 84.1 (82.0-92.0) fL MCH 27.6 (27.0-31.0) pg MCHC 32.8 (32.0-36.0) g/dL RDW 14.6 H (11.5-14.5) % Plt Count 318 (150-400) 10^3/uL MPV 9.7 (7.4-10.4) fL Immature Gran % (Auto) 0.3 (0.0-5.0) % Neut % (Auto) 56.7 (50.0-70.0) % Lymph % (Auto) 32.4 (20.0-40.0) % [place] % (Auto) 4.8 (2.0-8.0) % Eos % (Auto) 4.9 H (1.0-3.0) % Baso % (Auto) 0.9 (0.0-1.0) % Immature Gran # (Auto) 0.03 (0.00-0.50) 10^3/uL Neut # (Auto) 5.40 (2.50-7.00) 10^3/uL Lymph # (Auto) 3.09 (1.00-4.00) 10^3/uL [place] # (Auto) 0.46 (0.10-0.80) 10^3/uL Eos # (Auto) 0.47 H (0.10-0.30) 10^3/uL Baso # (Auto) 0.09 (0.00-0.10) 10^3/uL Sodium 141 (136-145) mmol/L Potassium 4.0 (3.3-5.3) mmol/L Chloride 101 (98-115) mmol/L Carbon Dioxide 27.5 (21.0-32.0) mmol/L Anion Gap 16.5 H (5-15) mmol/L BUN 12 (6-25) mg/dL Creatinine 0.73 (0.51-1.17) mg/dL Est Cr Clr Drug Dosing 69.68 mL/min Estimated GFR (MDRD) > 60 mL/min Glucose 145 H (75 - 99) mg/dL Calcium 9.2 (8.7-10.3) mg/dL Total Bilirubin 0.1 L (0.2-1.0) mg/dL AST 9 L (15-37) U/L ALT 21 (12-78) U/L Alkaline Phosphatase 106 (46-116) IU/L Total Protein 6.8 (6.4-8.2) g/dL Albumin 3.62 (3.00-4.80) g/dL Departure - Departure Disposition: Home, Self-Care 01 Clinical Impression: Hyperglycemia, Weakness, Stress at work, Stress at home - Discharge Information Referrals: Cece Petersen MD [Primary Care Provider] - Forms: ED Department Discharge Additional Instructions: Home to rest. 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 Continue home medications as directed. Make sure you maintain good fluid hydration. Maintain healthy diet and activity. Follow-up with your provider in the next week for recheck. Return to the emergency department if symptoms worsen. Sepsis Event Note - Evaluation Sepsis Screening Result: No Definite Risk - Focused Exam Vital Signs: Vital Signs Temp Pulse Resp BP Pulse Ox 07/20/19 14:59 35.8 C L 86 20 164/76 H 96 Date Exam was Performed: 07/20/19 Time Exam was Performed: 15:39 <Maik Guevara - Last Filed: 07/20/19 17:47> ED HPI GENERAL MEDICAL PROBLEM - History of Present Illness Onset Date: 07/19/19 Course - Radiology Interpretation Free Text/Narrative:: Chronic appearing small vessel ischemia. No acute findings. CT Results Date: 07/20/19 - Re-Assessments/Exams Free Text/Narrative Re-Assessment/Exam: 07/20/19 17:[address] report was received, discussion with Marsha that elevated blood sugar likely due to stress response. No significant findings on laboratory analysis nor acute findings on CT. Discussion on the significance of increased stress with work, as well as homeschooling children, and overall CoVid 19 issues are likely playing a significant part in this. Able to be seated with legs dangling with no deficit noted. Upper extremity strength is intact. 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 Assisted for safety to standing position, able to ambulate to the bathroom with no difficulty. Ambulates into the hallway to discuss discharge with no discomfort nor debility noted. Discussion on chronic ischemic findings that would correlate with her cardiac history. Continue on prescribed medications as directed. And needing follow-up in the next week with Dr. Calzada. Agrees and is preferring to be discharged home at this time. 07/20/19 17:35 Departure - Departure Time of Disposition: 17:16 Condition: Good - Discharge Information *PRESCRIPTION DRUG MONITORING PROGRAM REVIEWED*: Not Applicable *COPY OF PRESCRIPTION DRUG MONITORING REPORT IN PATIENT MARRY: Not Applicable Sepsis Event Note - Focused Exam Date Exam was Performed: 07/20/19 Time Exam was Performed: 17:32 - Problem List & Annotations (1) Weakness SNOMED Code(s): 06290269 Code(s): R53.1 - WEAKNESS Status: Acute Priority: Medium Current Visit : Yes (2) Stress at work SNOMED Code(s): 921233897 Code(s): Z56.6 - OTHER PHYSICAL AND MENTAL STRAIN RELATED TO WORK Status: Acute Priority: High Current Visit: Yes (3) Stress at home SNOMED Code(s): 681889059 Code(s): F43.9 - REACTION TO SEVERE STRESS, UNSPECIFIED Status: Acute Priority: High Current Visit: Yes (4) Hyperglycemia SNOMED Code(s): 08338542 Code(s): R73.9 - HYPERGLYCEMIA, UNSPECIFIED Status: Acute Priority: Medium Current Visit: Yes Annotation/Comment:: Likely a stress and dietary response. Needs to be reviewed and clinic follow-up. - Problem List Review Problem List Initiated/Reviewed/Updated: Yes - Assessment/Plan Plan: Home to rest. 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 Continue home medications as directed. Make sure you maintain good fluid hydration. Maintain healthy diet and activity. Follow-up with your provider in the next week for recheck. Return to the emergency department if symptoms worsen.
[2019-07-20 16:11] LABS: ANION GAP 16.5 mmol/L (5-15); CHLORIDE,CL 101 mmol/L (98-115); SODIUM,NA 141 mmol/L (136-145)
--- NOTE | 2019-07-20 16:53 | CT ---
[id number] CT/CT Head WO IV EXAM: NONCONTRAST HEAD CT INDICATION: OFF BALANCE. COMPARISON: April 29, 2009. DISCUSSION: There is mild generalized atrophy. Mild multifocal white matter hypoattenuation is nonspecific, but generally ascribed to chronic small vessel ischemia. No mass effect or midline shift. No acute hemorrhage or extra-axial fluid collection. No acute territorial infarct is identified. A limited look at the orbits and paranasal sinuses is unremarkable. IMPRESSION: 1. No acute findings. Chintan Hussein MD 07/20/19 0212 Thank you for allowing us to participate in the care of your patient.
== END 2019-07-20 17:30 | disposition home or self-care (01) ==
LOC: KA.ED 14:52
DX: R73.9 Hyperglycemia, unspecified (principal); F43.9 Reaction to severe stress, unspecified; F32.9 Major depressive disorder, single episode, unspecified; I25.2 Old myocardial infarction; E78.00 Pure hypercholesterolemia, unspecified; F17.210 Nicotine dependence, cigarettes, uncomplicated; Z79.82 Long term (current) use of aspirin; Z79.02 Long term (current) use of antithrombotics/antiplatelets; Z79.899 Other long term (current) drug therapy; Z88.2 Allergy status to sulfonamides; Z91.09 Other allergy status, other than to drugs and biological substances
CPT/HCPCS: 36415; 70450; 80053; 85025; 99285-25

== ENCOUNTER 2019-07-25 16:26 | Emergency (ER) | payer BC ==
[2019-07-25 17:25] LABS: BARBITURATE SCREEN,URINE NEGATIVE (NEGATIVE); BENZODIAZEPINES SCREEN,URINE NEGATIVE (NEGATIVE); TCA SCREEN,URINE NEGATIVE (NEGATIVE); THC SCREEN,URINE 50 NG/ML NEGATIVE (NEGATIVE)
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
[2019-07-25] MEDS ORDERED: Nitrofurantoin Monohydrate/Macrocrystalline 100 MG Cap PO ONE (17:49)
[2019-07-25 18:06] VITALS: BP 147/80; PULSE 93
[2019-07-25] MEDS ORDERED: Nitrofurantoin Monohydrate/Macrocrystalline 100 MG Cap ONE (18:27)
== END 2019-07-25 20:25 ==
LOC: KA.ED 16:26
DX: R45.851 Suicidal ideations (principal); N30.01 Acute cystitis with hematuria; E78.00 Pure hypercholesterolemia, unspecified; I25.2 Old myocardial infarction; F32.9 Major depressive disorder, single episode, unspecified; F17.210 Nicotine dependence, cigarettes, uncomplicated; Z88.2 Allergy status to sulfonamides; Z79.899 Other long term (current) drug therapy; Z79.02 Long term (current) use of antithrombotics/antiplatelets
CPT/HCPCS: 80305-QW; 81001; 87086; 99285; A9270-GY

== ENCOUNTER 2022-09-09 22:03 | Emergency (ER) | payer BC ==
[2022-09-09] MEDS ORDERED: Sodium Chloride 0.9% 10 ML Syringe FLUSH PRN (22:09)
[2022-09-09 22:28] LABS: BASOPHILS ABSOLUTE AUTO 0.08 10^3/uL (0.00-0.10); BASOPHILS PERCENT AUTO 0.9 % (0.0-1.0); EOSINOPHILS PERCENT AUTO 3.2 % (1.0-3.0); HEMATOCRIT 31.1 % (37.0-47.0); HEMOGLOBIN 10.3 g/dL (12.0-16.0); IMMATURE GRAN ABSOLUTE AUTO 0.01 10^3/uL (0.00-0.50); IMMATURE GRAN PERCENT AUTO 0.1 % (0.0-5.0); LYMPHOCYTES PERCENT AUTO 19.3 % (20.0-40.0); MEAN CORPUSCULAR HEMOGLOBIN 30.5 pg (27.0-31.0); MEAN CORPUSCULAR HGB CONC 33.1 g/dL (32.0-36.0); MONOCYTES ABSOLUTE AUTO 0.35 10^3/uL (0.10-0.80); MONOCYTES PERCENT AUTO 3.7 % (2.0-8.0); NEUTROPHILS PERCENT AUTO 72.8 % (50.0-70.0); PLATELET COUNT,PLT 261 10^3/uL (150-400); RED BLOOD CELL COUNT 3.38 10^6/uL (3.80-5.50); RED CELL DISTRIBUTION WIDTH 13.3 % (11.5-14.5); WHITE BLOOD CELL COUNT,WBC 9.34 10^3/uL (5.00-10.00)
[2022-09-09 22:46] LABS: ALBUMIN 2.88 g/dL (3.40-5.00); BILIRUBIN TOTAL 0.4 mg/dL (0.2-1.0); CALCIUM 9.1 mg/dL (8.7-10.3); CARBON DIOXIDE,CO2 27.1 mmol/L (21.0-32.0); CREATININE 2.08 mg/dL (0.51-1.17); EST CRCL DRUG DOSING (CG) 23.6 mL/min; POTASSIUM,K 3.1 mmol/L (3.5-5.1); PROTEIN TOTAL,TP 6.8 g/dL (6.4-8.2)
[2022-09-09 22:48] LABS: LACTIC ACID 0.9 mmol/L (0.4-2.0)
[2022-09-09] MEDS: Ondansetron 4 MG/2 ML SDV IVPUSH ONE (23:10)
[2022-09-09 23:15] LABS: APPEARANCE,URINE SLIGHTLY CLOUDY (CLEAR); BILIRUBIN,URINE NEGATIVE (NEGATIVE); COLOR,URINE YELLOW (YELLOW); GLUCOSE,URINE NEGATIVE (NEGATIVE); KETONES,URINE NEGATIVE (NEGATIVE); LEUKOCYTE ESTERASE,URINE NEGATIVE (NEGATIVE); NITRITE,URINE NEGATIVE (NEGATIVE); OCCULT BLOOD,URINE LARGE (NEGATIVE); PH,URINE 7.5 (5.0-9.0); PROTEIN,URINE >=300 mg/dL (NEGATIVE); UROBILINOGEN,URINE 0.2 E.U./dL (0.2-1.0)
[2022-09-09] MEDS: Morphine 4 MG/ML Syringe IVPUSH ONE (23:15)
[2022-09-09 23:16] LABS: PROTHROMBIN TIME 10.6 SEC (9.2-11.2); PTT,PARTIAL THROMBOPLSTIN TIME 24.3 SEC (22.8-31.4)
[2022-09-09 23:17] LABS: EPITHELIAL CELLS,URINE MANY /LPF; WBC,URINE 0-5 /HPF (0-5)
[2022-09-09 23:18] LABS: BACTERIA,URINE FEW /HPF (NONE TO FEW)
[2022-09-09] MEDS: Heparin Sodium/D5W 250 ML IV SCH (23:57)
[2022-09-09] MEDS: Heparin Sodium 5,000 Units/ML Vial IVPUSH ONE (23:57)
[2022-09-10 00:09] VITALS: BP 144/78; PULSE 116
== END 2022-09-10 00:25 ==
LOC: KA.ED 22:03
DX: R09.02 Hypoxemia (principal); R79.1 Abnormal coagulation profile; E78.00 Pure hypercholesterolemia, unspecified; Z95.5 Presence of coronary angioplasty implant and graft; Z88.2 Allergy status to sulfonamides; Z88.8 Allergy status to other drugs, medicaments and biological substances; Z79.82 Long term (current) use of aspirin; Z79.899 Other long term (current) drug therapy; Z79.01 Long term (current) use of anticoagulants
CPT/HCPCS: 36415; 71045; 80053; 81001; 83605; 83880; 84484; 85025; 85379; 85610; 85730; 93005; 93010; 96365; 96375; 96376; 99284; 99285-25; J1644; J2270; J2405